=== PATIENT | male | born 1945 | race Caucasian/White ===

== ENCOUNTER → 2022-12-06 10:32 | Outpatient (CLI) | payer MEDICARE, OTHER, SELFPAY ==
--- NOTE | 2022-12-06 10:40 | DI.MRI.S_ITS ---
PROCEDURE: MR SHOULDER RT WO CON INDICATIONS: Unspecified rotator cuff tear or rupture of right TECHNIQUE: Noncontrast oblique coronal T2 fast spin echo with fat saturation, oblique sagittal T1 spin echo and T2 fast spin echo with fat saturation, axial T1 spin echo and T2 fast spin echo with fat saturation through the shoulder. COMPARISON: None. FINDINGS: Image quality: Excellent. Rotator cuff: Moderate grade articular and bursal surface partial thickness tear involving distal supraspinatus at its insertion on the humeral head is seen extending to musculotendinous junction. Focal area of full-thickness perforation involving mid fibers of distal supraspinatus near musculotendinous junction is likely present. No significant retraction of torn tendon fibers. Low to moderate grade articular surface partial-thickness tear involving distal infraspinatus at its insertion on the humeral head is seen. Distal subscapularis tendinosis is seen. Sagittal images demonstrate mild supraspinatus muscle atrophy. Bones and bursae: No bone marrow contusions or fractures. Moderate acromioclavicular joint osteoarthritic changes are seen with joint space narrowing and downward osteophyte formation depressing the musculotendinous junction of supraspinatus. Moderate amount of joint effusion and subacromial subdeltoid bursal fluid is seen. No gross loose bodies. Capsule and soft tissues: Signal abnormality and contour irregularity involving superior anterior labrum at 12 to 1 o'clock position is seen suggestive of subtle superior anterior labral tear. The long head of the biceps tendon appears thickened. The rotator interval appears normal, without fibrosis. The coracohumeral ligament is normal in thickness. IMPRESSION: 1. Moderate grade articular and bursal surface partial thickness tear involving distal supraspinatus with focal area of full-thickness perforation involving mid fibers of distal supraspinatus near musculotendinous junction. Mild supraspinatus muscle atrophy. 2. Low to moderate grade articular surface partial-thickness tear involving distal infraspinatus. Distal subscapularis tendinosis. 3. Moderate acromioclavicular joint osteoarthritis and moderate joint effusion and subacromial subdeltoid bursal fluid. No gross loose bodies. No acute fracture or dislocation. 4. Suggestion of subtle superior anterior labral tear at 12 to 1 o'clock position. 5. Proximal long head of biceps tendinosis and low-grade partial-thickness tear. Dictated by: Ignacio Henderson M.D. on 12/06/2022 at 12:19 Approved by: Ignacio Henderson M.D. on 12/06/2022 at 12:25
== END ==
PROVIDERS: PCP Internal Medicine; Referring Provider Orthopaedic Surgery; Visit Provider Orthopaedic Surgery
DX: M75.111 Incomplete rotator cuff tear or rupture of right shoulder, not specified as traumatic (principal); S46.111A Strain of muscle, fascia and tendon of long head of biceps, right arm, initial encounter; M19.011 Primary osteoarthritis, right shoulder; M25.411 Effusion, right shoulder
CPT/HCPCS: 73221

== ENCOUNTER → 2023-01-28 12:39 | Outpatient (CLI) | payer MEDICARE, OTHER, SELFPAY ==
[2023-01-28 13:20] LABS: Add Manual Diff / Slide Review NO; Basophils Absolute Auto 100 /uL (0-100); Basophils Percent Auto 0.6 % (0-2); Eosinophils Absolute Auto 100 /uL (0-450); Eosinophils Percent Auto 1.7 % (2-4); Hematocrit 37.2 % (41-53); Hemoglobin 12.5 g/dL (13.5-17.5); Lymphocytes Absolute Auto 1700 /uL (1100-4500); Lymphocytes Percent Auto 21.3 % (25-40); Mean Corpuscular HGB Conc 33.6 % (30-36); Mean Corpuscular Hemoglobin 28.8 PG (26-34); Mean Corpuscular Volume 85.8 fL (80-100); Monocytes Absolute Auto 600 /uL (0-900); Monocytes Percent Auto 7.7 % (3-14); Neutrophils Absolute Auto 5300 /uL (1500-7000); Neutrophils Percent Auto 68.7 % (50-75); Platelet Count 242 X10^3/uL (150-400); Red Blood Cell Count 4.34 X10^6/uL (4.5-5.9); Red Cell Distribution Width 13.8 % (11.6-14.8); White Blood Cell Count 7.7 X10^3/uL (4.5-11.0)
[2023-01-28 13:48] LABS: BUN Creatinine Ratio 21.7 (6-22); Blood Urea Nitrogen 25 mg/dL (9-20); Calcium 8.8 mg/dL (8.4-10.2); Carbon Dioxide 26 mmol/L (22-32); Chloride 104 mmol/L (98-107); Estimated Glomerular Filt Rate > 60 mL/min (>60); Glucose 100 mg/dL (80-110); HEMOLYSIS < 15 (0-50); Potassium 3.9 mmol/L (3.4-5.1); Sodium 137 mmol/L (137-145)
== END ==
PROVIDERS: PCP Internal Medicine; Referring Provider Orthopaedic Surgery; Visit Provider Orthopaedic Surgery
DX: Z01.818 Encounter for other preprocedural examination (principal); Z01.812 Encounter for preprocedural laboratory examination
CPT/HCPCS: 36415; 80048; 85025; 93005; 93010

== ENCOUNTER → 2023-10-10 11:12 | Outpatient (CLI) | payer MEDICARE, OTHER, SELFPAY ==
--- NOTE | 2023-10-10 | DI.CT.S_ITS ---
PROCEDURE: CT LE LT W CON INDICATIONS: LEFT TOTAL ANKLE SURGICAL PLANNING TECHNIQUE: Noncontrast 1-1.5 mm axial sections acquired from the mid-patella to the proximal tibia, with coronal and sagittal reformats. COMPARISON: None. FINDINGS: Image quality: Excellent. Bones: Alignment of left knee is anatomic. No acute fracture or dislocation. [id number] tricompartmental osteoarthritis is seen with joint space narrowing, subchondral sclerosis and small marginal osteophyte formation more notably in medial femoral tibial compartment. No patellar subluxation. No suspicious bony lesions. Soft tissues: No significant joint effusion is seen. No calcified intra-articular loose bodies. No abnormal soft tissue calcifications. Distal quadriceps tendon and patellar tendon are intact. No full-thickness ACL or PCL rupture. IMPRESSION: 1. Study is for surgical planning. 2. [id number] tricompartmental osteoarthritis more notably in medial femoral tibial compartment. No fracture or dislocation. No significant patellar subluxation. 3. No significant joint effusion. No calcified intra-articular loose bodies. No full-thickness left knee tendon or ligament rupture. Dictated by: Ignacio Henderson M.D. on 10/10/2023 at 15:44 Approved by: Ignacio Henderson M.D. on 10/10/2023 at 15:46
--- NOTE | 2023-10-10 | DI.CT.S_ITS ---
PROCEDURE: CT LE LT W CON INDICATIONS: Pain in left ankle and joints of left foot TECHNIQUE: Noncontrast 1-1.5 mm axial sections acquired from mid tibial shaft to the bottom of the calcaneus, with coronal and sagittal reformats. [address] images through left knee joint were also obtained. COMPARISON: [facility] [place] [facility], CR, XR ANKLE 3 VIEWS WEIGHT BEARING LEFT, 09/30/2023, 15:39. FINDINGS: Image quality: Excellent. Bones: Moderate to severe tibiotalar joint osteoarthritic changes are seen with significant joint space narrowing, subchondral sclerosis and marginal osteophyte formation. Extensive osteochondral injuries are noted throughout talar dome with suggestion of unstable fragment involving posterior lateral aspect of talar dome measures 0.7 x 0.6 x 0.9 cm in size. [id number] osteoarthritic changes throughout rest of the left foot is seen. No acute fracture or dislocation. No suspicious bony lesions. Soft tissues: There is no abnormal soft tissue calcifications. Small tibiotalar joint effusion is seen, no calcified intra-articular loose bodies. Vascular calcifications are noted in posterior aspect of ankle and hindfoot. No soft tissue mass or drainable fluid collection. No gross full-thickness tendon rupture. Limited evaluation of left knee shows mild to moderate tricompartmental osteoarthritis more notably in medial femoral tibial compartment. No patellar subluxation. No fracture or dislocation. No significant right knee joint effusion. IMPRESSION: 1. Study is for surgical planning. 2. 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 3. [id number] osteoarthritic changes throughout rest of the left foot. No fracture or dislocation. No suspicious bony lesions. 4. Mild tricompartmental osteoarthritis in left knee. 5. No gross left foot and left knee soft tissue abnormalities. Dictated by: Ignacio Henderson M.D. on 10/10/2023 at 14:34 Approved by: Ignacio Henderson M.D. on 10/10/2023 at 15:37
== END ==
LOC: CT 11:15
PROVIDERS: PCP Internal Medicine; Referring Provider Orthopaedic Surgery Foot and Ankle Surgery; Visit Provider Orthopaedic Surgery Foot and Ankle Surgery
DX: M19.072 Primary osteoarthritis, left ankle and foot (principal); M17.12 Unilateral primary osteoarthritis, left knee; M25.572 Pain in left ankle and joints of left foot
CPT/HCPCS: 73700